=== PATIENT | female | born 1990 | race Two or more races ===

== ENCOUNTER 2024-06-14 22:00 | Emergency (ER) | payer MEDICAID, SELFPAY ==
--- NOTE | 2024-06-14 22:34 | PC.NURSE ---
called for pt from lobby/outside, no [id number]
--- NOTE | 2024-06-14 22:47 | PC.NURSE ---
called for pt from lobby/outside, no [id number]@ [id number]
== END 2024-06-14 23:15 | disposition left against medical advice (07) ==
LOC: SERX 23:24
PROVIDERS: Emergency Provider Emergency Medicine
DX: Z53.21 Procedure and treatment not carried out due to patient leaving prior to being seen by health care provider (principal)